=== PATIENT | female | born 1975 | race African-American/Black ===

== ENCOUNTER 2020-06-27 06:06 | Inpatient (IN) ==
[2020-06-27] MEDS ORDERED: cefOXitin 2,000 MG in Water for inj. (sterile) 20 ML IVP ONE ×2 (06:39→06:59)
[2020-06-27] MEDS ORDERED: Lidocaine HCL 4 ML Topical Solution (Laryng-O-Jet Kit Sterile Pak) TP ONE (06:52)
[2020-06-27] MEDS ORDERED: Dexamethasone 4 MG/ML VIAL ONE (06:56)
[2020-06-27] MEDS ORDERED: *HR* Rocuronium Bromide 50 MG/5 ML VIAL ONE ×2 (06:56→08:48)
[2020-06-27] MEDS ORDERED: Ondansetron 4 MG/2 ML VIAL ONE (06:56)
[2020-06-27] MEDS ORDERED: Lidocaine -MPF 2% 2 ML VIAL ONE (06:56)
[2020-06-27] MEDS ORDERED: *HR* Midazolam HCl 2 MG/2 ML VIAL ONE (06:59)
[2020-06-27] MEDS ORDERED: *HR* Propofol 200 MG/20 ML VIAL IVP ONE (07:00)
[2020-06-27] MEDS ORDERED: *HR* FentaNYL (PF) 100 MCG/2 ML VIAL ONE (07:00)
[2020-06-27] MEDS ORDERED: Promethazine 6.25 MG in Water for inj. (sterile) 20 ML IVPB PRN (07:06)
[2020-06-27] MEDS ORDERED: Ondansetron 4 MG/2 ML VIAL IVP PRN ×2 (07:06→10:56)
[2020-06-27] MEDS ORDERED: *HR* Meperidine 25 MG/ML SYRINGE IVP PRN (07:06)
[2020-06-27] MEDS ORDERED: Acetaminophen IV 1,000 MG/100 ML BAG IVPB ONE (07:06)
[2020-06-27] MEDS: Ringers Solution, Lactated 1,000 ML IVC SCH ×3 (07:28→17:28)
[2020-06-27] MEDS ORDERED: *HR* HYDROMORPHONE 2 MG/ML VIAL ONE ×2 (08:10→09:02)
[2020-06-27] MEDS ORDERED: Sugammadex Sodium 200 MG/2 ML VIAL IV ONE (08:15)
[2020-06-27] MEDS ORDERED: EPHEDrine 50 MG/ML VIAL ONE (08:40)
[2020-06-27] MEDS: *HR* HYDROmorphone PF 0.5 MG/0.5 ML SYRINGE IVP PRN ×2 (09:50→09:55)
[2020-06-27] MEDS ORDERED: Naloxone 0.4 MG/ML INJ IVP PRN (10:56)
[2020-06-27] MEDS: *HR* OxyCODONE/APAP 5/325 TABLET PO PRN ×3 (12:39→23:02)
[2020-06-27] MEDS: Clindamycin 900 MG/50 ML 900 MG/50 ML IV.SOLN IVPB SCH (16:08)
[2020-06-27] MEDS ORDERED: Acetaminophen IV 1,000 MG/100 ML BAG IVPB PRN (19:20)
[2020-06-28] MEDS: Ketorolac 30 MG/ML VIAL IVP PRN ×3 (00:26→13:27)
[2020-06-28] MEDS: Clindamycin 900 MG/50 ML 900 MG/50 ML IV.SOLN IVPB SCH ×2 (00:28→07:31)
[2020-06-28 07:26] LABS: Hematocrit 25.7 % (35.3-44.9); Hemoglobin 7.8 g/dL (11.5-15.4); Mean Corpuscular HGB Conc 30.4 g/dL (31.6-35.5); Mean Corpuscular Hemoglobin 20.2 pg (28.0-33.3); Mean Corpuscular Volume 66.4 fL (83.0-100.0); Platelet Count 298 K/mcL (140-400); Red Blood Count 3.87 M/mcL (3.82-4.97); Red Cell Distribution Width 24.3 % (11.5-14.5); White Blood Count 8.1 K/mcL (4.3-11.1)
[2020-06-28] MEDS: *HR* OxyCODONE/APAP 5/325 TABLET PO PRN ×4 (07:31→22:33)
[2020-06-28 08:54] LABS: Lymphocytes # 3.2 K/mcL (0.6-4.6); Monocytes # 0.3 K/mcL (0.0-1.3); Neutrophils # 4.5 K/mcL (1.6-8.9)
[2020-06-28 09:01] LABS: Anisocytosis 3+ (Not Present); Hypochromasia Present (Not Present); Platelet Estimate Normal (Normal); Target Cells 1+ (Not Present)
[2020-06-28 09:21] LABS: Schistocytes 1+ (Not Present); Sickle Cells 1+ (Not Present)
[2020-06-28 09:22] LABS: Acanthocytes 1+ (Not Present)
[2020-06-28 09:23] LABS: Microcytosis Present (Not Present)
[2020-06-28] MEDS: Ringers Solution, Lactated 1,000 ML IVC SCH ×2 (10:01→18:13)
[2020-06-29] MEDS: Ketorolac 30 MG/ML VIAL IVP PRN (02:58)
[2020-06-29] MEDS: *HR* OxyCODONE/APAP 5/325 TABLET PO PRN (07:11)
[2020-06-29 07:19] VITALS: BP 128/78
== END 2020-06-29 09:49 | disposition home or self-care (01) | DRG 743 ==
LOC: SAMDAY 06:06 → 1NENUOBS 10:26
PROVIDERS: ADMIT Obstetrics & Gynecology; ATTEND Obstetrics & Gynecology

== ENCOUNTER 2021-02-28 20:19 | Inpatient (IN) ==
[2021-02-28] MEDS ORDERED: Ketorolac 30 MG/ML VIAL IVP ONE (20:32)
[2021-02-28] MEDS ORDERED: Aspirin 325 MG TABLET PO ONE (20:38)
[2021-02-28 21:11] LABS: Basophils % 0.1 %; Eosinophils % 0.4 %; Hematocrit 28.3 % (35.3-44.9); Hemoglobin 8.7 g/dL (11.5-15.4); Immature Granulocytes % 0.8 % (0-4); Lymphocytes # 1.6 K/mcL (0.6-4.6); Lymphocytes % 17.8 %; Mean Corpuscular HGB Conc 30.7 g/dL (31.6-35.5); Mean Corpuscular Hemoglobin 18.6 pg (28.0-33.3); Mean Corpuscular Volume 60.6 fL (83.0-100.0); Mean Platelet Volume 9.2 fL (9.4-12.4); Monocytes # 0.6 K/mcL (0.0-1.3); Monocytes % 7.2 %; Neutrophils # 6.6 K/mcL (1.6-8.9); Platelet Count 426 K/mcL (140-400); Red Blood Count 4.67 M/mcL (3.82-4.97); Red Cell Distribution Width 20.6 % (11.5-14.5); Segmented Neutrophils % 73.7 %; White Blood Count 8.9 K/mcL (4.3-11.1)
[2021-02-28 21:12] LABS: Microcytosis Present (Not Present)
[2021-02-28 21:33] LABS: Alanine Aminotransferase 26 Units/L (7-52); Albumin/Globulin Ratio 0.7 (1.1-2.2); Alkaline Phosphatase 89 Units/L (34-104); Aspartate Amino Transferase 18 Units/L (13-39); BUN/Creatinine Ratio 12 (6-26); Bilirubin,Direct 0.1 mg/dL (0.0-0.2); Bilirubin,Indirect 0.2 mg/dL (0.0-1.0); Bilirubin,Total 0.3 mg/dL (0.3-1.0); Blood Urea Nitrogen 8 mg/dL (6-20); Calcium 8.4 mg/dL (8.6-10.3); Carbon Dioxide 26 mEq/L (23-29); Chloride 106 mEq/L (98-107); Globulin 4.2 g/dL (2.4-3.5); Glucose 142 mg/dL (70-105); Osmolality,Calculated 289 (280-300); Potassium 3.7 mEq/L (3.5-5.1); Sodium 139 mEq/L (136-145); Total Protein 7.2 g/dL (6.4-8.9); Troponin I < 0.03 ng/mL (< 0.04); eGFR For African Americans > 60 (> 60); eGFR For Non-African Americans > 60 (> 60)
[2021-02-28] MEDS ORDERED: Isovue-370 500 ML BOTTLE IVP ONE (22:17)
[2021-02-28 22:21] LABS: ABG Base Excess 3 mEq/L (-2 to 3); ABG HCO3 26 mEq/L (21-27); ABG Oxygen Saturation 91 % (95-98); ABG PCO2 34 mmHg (35-45); ABG PO2 55 mmHg (85-104); ABG TCO2 27 mEq/L (20-26)
[2021-02-28] MEDS ORDERED: Acetaminophen 325 MG TABLET PO ONE (23:00)
[2021-02-28 23:11] LABS: Bacteria,Urine Few per hpf (None-Few); Bilirubin,Urine Negative (Negative); Blood,Urine Negative (Negative); Clarity,Urine Clear (Clear); Color,Urine Light-Yellow (Yellow); Glucose,Urine (UA) Normal (Normal); Hyaline Casts,Urine Few per lpf (None Seen); Ketones,Urine Negative (Negative); Leukocyte Esterase,Urine Negative (Negative); Mucus,Urine Few per lpf (None-Few); Nitrite,Urine Negative (Negative); Protein,Urine 70 mg/dL (Neg-Trace); RBC,Urine 0-3 per hpf (0-3); Specific Gravity,Urine 1.013 (1.010-1.025); Squamous Epithelial Cell,Urine Few per hpf (None-Few); Urobilinogen,Urine Normal (Normal)
[2021-03-01] MEDS ORDERED: *HR* Heparin 5,000 UNIT/ML VIAL IVP PRN ×2 (01:02)
[2021-03-01] MEDS ORDERED: *HR* Heparin 5,000 UNIT/ML VIAL IVP ONE (01:02)
[2021-03-01] MEDS ORDERED: Heparin 25,000UNIT/250ML 1/2NS 25,000 UNIT/250 ML IV.SOLN IVC SCH (01:15)
[2021-03-01] MEDS ORDERED: Melatonin 3 MG TABLET PO PRN (01:29)
[2021-03-01] MEDS ORDERED: Naloxone 0.4 MG/ML INJ IVP PRN (01:29)
[2021-03-01] MEDS ORDERED: Dexamethasone Sodium Phos/PF 10 MG/ML VIAL IVP SCH (01:45)
[2021-03-01] MEDS ORDERED: *HR* Enoxaparin 100 MG/ML SYRINGE SQ SCH (02:15)
[2021-03-01 03:04] LABS: Hematocrit 27.3 % (35.3-44.9); Hemoglobin 8.2 g/dL (11.5-15.4); Mean Corpuscular Hemoglobin 18.5 pg (28.0-33.3); Mean Corpuscular Volume 61.6 fL (83.0-100.0); Mean Platelet Volume 9.5 fL (9.4-12.4); Platelet Count 419 K/mcL (140-400); Red Blood Count 4.43 M/mcL (3.82-4.97); Red Cell Distribution Width 20.3 % (11.5-14.5); White Blood Count 8.3 K/mcL (4.3-11.1)
[2021-03-01 03:15] LABS: Heparin anti-factor XA UFH < 0.04 IU/mL (0.30-0.70); INR 1.3
[2021-03-01 03:23] LABS: C-Reactive Protein 143 mg/L (Less than 10)
[2021-03-01] MEDS ORDERED: *HR* Dextrose 50 % in Water (Syg) 50 ML SYRINGE IVP PRN (03:38)
[2021-03-01] MEDS ORDERED: D5% in Water 1,000 ML IVC PRN (03:38)
[2021-03-01] MEDS ORDERED: Dextrose Gel 15 GM/37.5 ML TUBE PO PRN ×2 (03:38)
[2021-03-01 06:59] LABS: Procalcitonin 0.06 ng/mL (0.00-0.15)
[2021-03-01 09:19] LABS: Folate 17.9 ng/mL (3.0-16.0)
[2021-03-01 14:15] LABS: Ferritin 172 ng/mL (10-120); Iron < 10 mcg/dL (50-170)
[2021-03-01 14:37] LABS: Transferrin 273
[2021-03-01] MEDS: Apixaban 5 MG TABLET PO SCH ×3 (19:59→21:23)
[2021-03-01] MEDS: GuaiFENesin Liq 200 MG/10 ML UDC PO PRN (21:22)
[2021-03-02] MEDS: GuaiFENesin Liq 200 MG/10 ML UDC PO PRN (03:34)
[2021-03-02 06:13] LABS: Hematocrit 25.3 % (35.3-44.9); Hemoglobin 7.9 g/dL (11.5-15.4); Mean Corpuscular HGB Conc 31.2 g/dL (31.6-35.5); Mean Corpuscular Hemoglobin 18.9 pg (28.0-33.3); Mean Corpuscular Volume 60.7 fL (83.0-100.0); Mean Platelet Volume 9.5 fL (9.4-12.4); Platelet Count 460 K/mcL (140-400); Red Blood Count 4.17 M/mcL (3.82-4.97); Red Cell Distribution Width 20.3 % (11.5-14.5); White Blood Count 10.4 K/mcL (4.3-11.1)
[2021-03-02 06:28] LABS: BUN/Creatinine Ratio 18 (6-26); Blood Urea Nitrogen 12 mg/dL (6-20); Calcium 8.7 mg/dL (8.6-10.3); Carbon Dioxide 25 mEq/L (23-29); Chloride 107 mEq/L (98-107); Glucose 141 mg/dL (70-105); Osmolality,Calculated 290 (280-300); Sodium 139 mEq/L (136-145); eGFR For African Americans > 60 (> 60); eGFR For Non-African Americans > 60 (> 60)
[2021-03-02] MEDS ORDERED: Iron Sucrose Complex 400 MG in 0.9 % Sodium Chloride 250 ML IVPB ONE (07:27)
[2021-03-02 08:06] VITALS: BP 112/74; PULSE 86; TEMP 98.4; O2SAT 93
[2021-03-02] MEDS: Apixaban 5 MG TABLET PO SCH (08:18)
[2021-03-02] MEDS ORDERED: Cyanocobalamin (B-12) 1,000 MCG TABLET PO SCH (09:00)
== END 2021-03-02 12:45 | disposition home or self-care (01) | DRG 177 ==
LOC: 3NENU 20:19 → EMEROOARM 20:19 → SUATTDRO 03-01 01:29 → 3NENU 03-01 02:32
PROVIDERS: ADMIT Internal Medicine; ATTEND Internal Medicine